=== PATIENT | female | born 1995 | race Two or more races ===

== ENCOUNTER 2018-10-31 20:33 | Emergency (ER) | payer MEDICAID ==
[~2018-10-31] VITALS: Ht 162.6 cm; Wt 77.1 kg
[2018-10-31 21:00] VITALS: BP 119/82
[2018-10-31] MEDS ORDERED: SODIUM CHLORIDE 0.9% 1,000 ML IV ONE (21:15)
== END 2018-10-31 21:42 | disposition left against medical advice (07) ==
LOC: ER 20:33
DX: R10.9 Unspecified abdominal pain (principal); Z53.21 Procedure and treatment not carried out due to patient leaving prior to being seen by health care provider

== ENCOUNTER 2019-02-26 16:01 | Observation (INO) | payer MEDICAID ==
[~2019-02-26] VITALS: Ht 165.1 cm; Wt 87.1 kg
[2019-02-26 16:08] VITALS: BP 128/78
[2019-02-26] MEDS ORDERED: TERBUTALINE SULFATE 1 MG/ML 1ML VIAL SC ONE (16:56)
[2019-02-26] MEDS: TERBUTALINE SULFATE 1 MG/ML 1ML VIAL SC SCH ×3 (16:59→17:43)
[2019-02-26 18:10] LABS: Alcohol, Urine < 3.0 mg/dL (0-5); Amphetamine Screen, Urine NEGATIVE (NEGATIVE); Barbiturate Scree,Urine NEGATIVE (NEGATIVE); Benzodiazephine Screen, Urine NEGATIVE (NEGATIVE); Cannabinoid Screen, Urine POSITIVE (NEGATIVE); Cocaine Screen, Urine NEGATIVE (NEGATIVE); Phencyclidine Screen, Urine NEGATIVE (NEGATIVE)
[2019-02-26 18:18] LABS: Opiate Scree,Urine NEGATIVE (NEGATIVE)
== END 2019-02-26 18:55 | disposition home or self-care (01) | DRG 566 ==
LOC: ER 16:01 → LDRP 16:15
PROVIDERS: ADMIT Specialist; ATTEND Specialist
DX: O62.9 Abnormality of forces of labor, unspecified (principal); Z3A.34 34 weeks gestation of pregnancy
CPT/HCPCS: 59025; 80307; 81002; 96372; G0378; J3105